=== PATIENT | male | born 1980 | race African-American/Black ===

== ENCOUNTER 2021-05-25 17:52 | Emergency (ER) | payer OTHER, SELFPAY ==
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
[2021-05-25 18:03] VITALS: BP 121/80; PULSE 66; RESP 16; TEMP 36.7; O2SAT 100
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
== END 2021-05-25 19:05 | disposition home or self-care (01) ==
PROVIDERS: Emergency Provider Nurse Practitioner; PCP Internal Medicine Infectious Disease
DX: S16.1XXA Strain of muscle, fascia and tendon at neck level, initial encounter (principal); V49.40XA Driver injured in collision with unspecified motor vehicles in traffic accident, initial encounter
CPT/HCPCS: 72050; 99213; G0463

== ENCOUNTER 2022-07-29 09:09 | Outpatient (CLI) | payer BC, SELFPAY ==
--- NOTE | 2022-07-29 11:00 | NEURO_ITS ---
Impression: # Complains of numbness of hands and spasms. # Early sensory component Carpal Tunnel Syndrome of left. # Normal needle/EMG exam. # Clinical correlation recommended. Motor Nerve Conduction Upper Extremities Median Nerve Conduction Velocity (m/sec) Terminal Latency (msec) Response Voltage(mV) Elbow-Wrist Wrist Elbow Wrist Right 59 3.6 4 2 Left 59 3.4 4 3 Ulnar Nerve Conduction Velocity (m/sec) Terminal Latency (msec) Response Voltage(mV) Above Elbow Below Elbow Wrist Above Elbow Below Elbow Wrist Right 60 2.3 4 4 Left 61 2.3 5 6 F-Wave Latency Median (ms) Ulnar (ms) Right 28.8 29.3 Left 29.1 28.8 Sensory Nerve Conduction Upper Extremities Median Nerve Stimulation Terminal Latency (msec) Wrist/Digit Response Voltage (uV) Wrist Right 3.3/4.0 36/15 Left 6.5/NR 7/NR Ulnar Nerve Stimulation Terminal Latency (msec) Wrist/Digit Response Voltage (uV) Wrist Right 2.7 36 Left 2.6 29 Radial Nerve Terminal Latency (msec) Response Voltage(mV) Right 2.6 7 Left 2.3 20 Left Right Muscles Examined Fibrillation Fasciculation Scarcity Voltage Duration Left Right Left Right Left Right Left Right Left Right Deltoid Biceps X X Brachioradialis Triceps X X Pronator Teres X X Ext Indicis X X Ext Digitorum X X Abd Poll Brev X X 1st Dorsal Interosseus X X Abd Dig Min MTDD
== END 2022-07-29 09:10 | disposition home or self-care (01) ==
PROVIDERS: PCP Internal Medicine Infectious Disease; Visit Provider Physician Assistant Surgical
DX: G56.03 Carpal tunnel syndrome, bilateral upper limbs (principal)
CPT/HCPCS: 95886; 95911

== ENCOUNTER 2023-06-11 17:52 | Emergency (ER) | payer OTHER, SELFPAY ==
[2023-06-11 18:02] VITALS: BP 136/87; PULSE 84; RESP 16; TEMP 36.8; O2SAT 97
--- NOTE | 2023-06-11 19:52 | ED.WOUNDLAC ---
HPI - Wound/Laceration General Chief Complaint: Wound/Laceration Stated Complaint: lac - index finger Time Seen by Provider: 06/11/23 19:25 Source: patient Mode of arrival: ambulatory Limitations: no limitations History of Present Illness HPI narrative: 42-year-old male presenting with laceration over the left do they do the 2nd digit fall. Occurred yesterday worse in the afternoon. Stop the fentanyl he was cutting some onions when he sliced his finger. He has been having issues with bleeding ever since remains finger. No pain in the area. No other injuries. All other symptoms and complaints are negative as per ROS. Related Data Allergies Allergy/AdvReac Type Severity Reaction Status Date / Time No Known Allergies Allergy Verified 06/11/23 17:54 Review of Systems Review of Systems: All systems reviewed & are unremarkable except as noted in HPI and below PMFSH Past Medical History Medical History No acute medical problems Family History Family History Father Hypertension Mother Family history of diabetes mellitus in first degree relative Social History Social History Smoking status: Never smoker Alcohol intake: current Exam Narrative: Constitutional: Generally well appearing, no acute distress Head: Atraumatic, no deformities. Eyes: Pupils equal, round, and reactive to light. Neck: Supple, no tracheal deviation, no JVD. ENMT: Mucous membranes moist Cardiovascular: S1, S2 auscultated. No murmurs, rubs, or gallops. No S3/S4. Normal Distal pulses. No peripheral edema. Respiratory: Lung sounds equal. No wheezes, rales, or rhonchi. Gastrointestinal: Abdomen was soft, nondistended Musculoskeletal: Normal muscle tone and bulk. No obvious deformities over extremities. Skin: No rashes.2 cm laceration over the dorsal aspect of the left 2nd digit, very superficial, over the proximal phalanx. No active bleeding. No surrounding erythema, discharge, swelling. Neurological: Strength 5/5 in extremities. Distal sensation intact. Mental Status: Awake, alert and oriented x3. Follows commands Course Vital Signs Vital signs: Vital Signs Temperature 36.8 C 06/11/23 18:02 Pulse Rate 84 06/11/23 18:02 Respiratory Rate 16 06/11/23 18:02 Blood Pressure 136/87 06/11/23 18:02 Pulse Oximetry 97 06/11/23 18:02 Temperature 36.8 C 06/11/23 18:02 Pulse Rate 84 06/11/23 18:02 Respiratory Rate 16 06/11/23 18:02 Blood Pressure 136/87 06/11/23 18:02 Pulse Oximetry 97 06/11/23 18:02 Procedures Laceration Laceration 1: Date: 06/11/23 Time: 19:56 Site: upper extremity ( Left 2nd digit) Side (If applicable): left Size (cm): 2 Description: linear and clean Depth: simple, single layer Local Anesthetic: none Pre-repair: wound explored, irrigated and irrigated extensively ====== Skin Level ====== Skin layer closed with: steri strips ( x3) ====== Subcutaneous Layer ====== ====== Muscle Layer ====== ====== Tendon Layer ====== Dressing: bulky sterile dressing applied by nurse MDM - Wound/Laceration MDM Narrative Medical decision making narrative: 42-year-old male presenting with left 2nd finger laceration occurring yesterday with a knife while cutting onions. Happened almost 24 hours ago. It is very superficial, 2 cm, linear. Discussed that closure with sutures may result in increased risk of infection and we decided together that we better suited with Steri-Strips. Three Steri-Strips applied. Adequate closure achieved. Given tetanus shot here. Given Keflex here will be discharged home with Keflex. Patient is agreeable with the plan. His Pt feeling improved and would like to go home at this point. Return precautions w
[2023-06-11] MEDS: TETANUS,DIPHTHERIA,AC PERTUSSIS ADULT (0.5 ML) BOOSTRIX IM (20:20)
[2023-06-11] MEDS: CEPHALEXIN 500 MG CAPSULE PO (20:20)
[2023-06-11 20:26] VITALS: BP 130/86; PULSE 82; RESP 15; O2SAT 100
== END 2023-06-11 20:27 | disposition home or self-care (01) ==
PROVIDERS: Emergency Provider Emergency Medicine; PCP Internal Medicine Infectious Disease
DX: S61.211A Laceration without foreign body of left index finger without damage to nail, initial encounter (principal); Z23 Encounter for immunization; W26.0XXA Contact with knife, initial encounter
CPT/HCPCS: 90471; 90715; 99283; A9270

== ENCOUNTER 2025-05-13 16:50 | Emergency (ER) | payer BC, SELFPAY ==
--- NOTE | 2025-05-13 16:51 | ED.URI ---
HPI - URI/Sore Throat General Chief Complaint: Upper Respiratory Infection Stated Complaint: Sore throat Time Seen by Provider: 05/13/25 16:51 Source: patient Mode of arrival: ambulatory Limitations: no limitations History of Present Illness HPI Narrative: Martín is a 44-year-old male patient presenting to the clinic today with complaints of sore throat and nasal congestion that just started this morning. Reports he did take some [place] as this morning for some his symptoms. Rates his pain currently is 6/10. [place] feverish but did not check his temperature. MD elicited complaint: sore throat and nasal congestion Related Data Home Medications ?Medication ?Instructions ?Recorded ?Confirmed ?Last Taken ?Type No Home Medications 05/13/25 05/13/25 Unknown History Allergies Allergy/AdvReac Type Severity Reaction Status Date / Time No Known Allergies Allergy Verified 05/13/25 17:09 Review of Systems Review of Systems: Pertinent positives per HPI. Patient denies any fever, chills, rash, headache, visual changes, dizziness, cough, shortness of breath, chest pain, palpitations, nausea, vomiting, diarrhea, constipation, abdominal pain, or any urinary issues. [facility] Past Medical History Medical History No acute medical problems Family History Family History Father Hypertension Mother Family history of diabetes mellitus in first degree relative Social History Social History Smoking status: Never smoker Alcohol intake: current Comments At the time of my signature, I reviewed and agree with the nursing past medical, surgical, social, and family history. There is no relevant family history pertinent to the patient complaint. Exam Narrative: General: Well-developed, well nourished, in no apparent distress Head: Normocephalic, atraumatic Eyes: Pupils equally round and reactive to light bilaterally, EOM intact, sclera and conjunctive clear, no discharge, lids normal Ears: TMs intact and clear, ear canals clear, no drainage, grossly hearing normal. Nose: Nares patent, clear nasal discharge, no inflammation, no sinus tenderness. Mouth: Oral pharynx mildly red without lesions or masses, good dentition, MMM. Neck: Supple, trachea midline, no enlargement of anterior or posterior cervical nodes, no thyroid masses or goiter palpable. Cardio: Regular rate and rhythm, s1 and s2 normal, no murmur appreciated. Resp: Clear to auscultation bilaterally, no rhonchi, rales, wheezing or rubs Course Course Emergency Course: Portions of this record may have been created with voice recognition software. Level of Care: Express Care Visit Vital Signs Vital signs: Vital Signs Temperature 37.2 C 05/13/25 17:06 Pulse Rate 72 05/13/25 17:06 Respiratory Rate 16 05/13/25 17:06 Blood Pressure 124/84 05/13/25 17:06 Pulse Oximetry 100 05/13/25 17:06 Oxygen Delivery Room Air 05/13/25 17:06 Temperature 37.2 C 05/13/25 17:06 Pulse Rate 72 05/13/25 17:06 Respiratory Rate 16 05/13/25 17:06 Blood Pressure 124/84 05/13/25 17:06 Pulse Oximetry 100 05/13/25 17:06 Oxygen Delivery Room Air 05/13/25 17:06 Vital signs reviewed MDM - URI/Sore Throat MDM Narrative Medical decision making narrative: At the time of visit patient is resting comfortably on the exam table. Patient appears to be nontoxic. complaints of sore throat and nasal congestion that just started this morning. Reports he did take some [place] as this morning for some his symptoms. Rates his pain currently is 6/10. [place] feverish but did not check his temperature. On exam patient has TMs intact and clear, clear nasal drainage, mildly red oropharynx, lung sounds are clear, heart rates regular rate rhythm. COVID and strep testing was performed. Labs: COVID and strep testing were negative. We will send strep for culture. Plan: I suspect patient has URI/pharyngitis. Supportive measures were discussed with the patient and they voiced understanding discharge instructions and agrees to treatment plan. Return precautions reviewed Differential Diagnosis Differential diagnosis: Likely upper respiratory infection, otitis media, sinusitis, viral infection, bronchitis, influenza, pharyngitis and other (COVID) Discharge Plan Discharge Clinical Impression: Upper respiratory infection Qualifiers: URI type: unspecified URI Qualified Code(s): J06.9 - Acute upper respiratory infection, unspecified Pharyngitis Qualifiers: Pharyngitis/tonsillitis etiology: unspecified etiology Qualified Code(s): J02.9 - Acute pharyngitis, unspecified Patient Disposition: Home Condition: Stable Instructions: Antibiotic Form, Pharyngitis (ED), Cold Symptoms (ED) Additional Instructions: COVID and strep test were negative. We will send strep for culture if this comes back positive we will contact you in place you on antibiotics at that time. Increase fluids and stay well hydrated May take Tylenol or motrin as directed on bottle for pain/fever May use Flonase 1 spray in each nare daily May take OTC antihistamines such as Zyrtec or Claritin daily as directed on bottle May apply Vicks vapor rub to chest to open sinuses Sinus rinses for congestion Cepacol spray, cough drops, throat lozenges, warm tea with honey/lemon, gargle salt water to soothe throat BRAT diet for diarrhea Clear liquids x 24 hours then advance as tolerated for nausea/vomiting Go to the ED if you develop a worsening in your condition- high fever not controlled by Tylenol or Motrin, dehydration, weakness, lethargy, shortness of breath, or chest pain. Follow up with your PCP in 3-5 days if symptoms persist. Patient Language: Icelandic Prescriptions: No Action No Home Medications Follow-up/Referrals: JoonCamille M.D. [Primary Care Provider] Time of Disposition: 17:22 Quality NIHSS Nursing Documentation ED NIHSS nursing documentation: reviewed/agree
[2025-05-13 17:06] VITALS: BP 124/84; PULSE 72; RESP 16; TEMP 37.2; O2SAT 100
[2025-05-13 17:27] LABS: EDCOVIDSCREEN Negative (Negative); EDSTREPNEGPOS1 Negative (Negative)
== END 2025-05-13 17:28 | disposition home or self-care (01) ==
PROVIDERS: Emergency Provider Nurse Practitioner Family; PCP Internal Medicine Infectious Disease
DX: J06.9 Acute upper respiratory infection, unspecified (principal); J02.9 Acute pharyngitis, unspecified; Z20.822 Contact with and (suspected) exposure to COVID-19
CPT/HCPCS: 87081; 87426; 87880; 99213; G0463